=== PATIENT | female | born 1940 | race African-American/Black ===

== ENCOUNTER 2019-01-17 09:57 | Emergency (ER) | payer OTHER ==
--- OUTSIDE RECORDS SUMMARY | 2019-01-17 10:00 | XMS REPORT ---
:1940 Author Organization [employer] Care Team Providers Name Role Phone Smith, Luh Provider Role Unavailable Allergies No Known Allergies Problems Problem Type Condition Code Onset Dates Condition Status Problem Allergic rhinitis J30.9 Active Problem BMI 38.0-38.9,adult Z68.38 Active Problem Hyperlipidemia E78.5 Active Problem BMI 40.0-44.9, adult Z68.41 Active Problem Influenza vaccination administered Z23 Active at current visit Problem Primary insomnia F51.01 Active Problem HTN (hypertension) I10 Active Problem Hypertensive urgency I16.0 Active Problem Asymptomatic hypertensive urgency I16.0 Active Problem Acute right-sided low back pain with M54.41 Active right-sided sciatica Problem Age-related cataract of both eyes, H25.9 Active unspecified age-related cataract type Problem Elevated blood pressure reading with I10 Active diagnosis of hypertension Problem Spondylolisthesis at L5-S1 level M43.17 Active Problem White coat syndrome with diagnosis I10 Active of hypertension Medications Medication Code Code Instructions Start End Status Dosage System Date Date Verapamil HCl NDC 88118793542 240 MG Orally Dec 26, Active 1 tablet ER Once a day 2018 Verapamil HCl NDC 91000429022 240 MG Orally Dec 18, Inactive 1 capsule ER Once a day 2018 Results No Known Results Summary Purpose [employer] Submission
--- NOTE | 2019-01-17 11:28 | RAD REPORT ---
EXAM DESCRIPTION: RAD - Chest Pa And Lat (2 Views) - 01/17/2019 11:11 am CLINICAL HISTORY: COUGH Chest pain. COMPARISON: No comparisons FINDINGS: The lungs are clear. The heart is mildly enlarged in size. No displaced fractures. Thoraci c spondylosis.
--- NOTE | 2019-01-17 11:44 | ER ---
Nurse's Notes [facility] Name: Julisa Rutledge Age: 78 yrs Sex: Female : 1940 Arrival Date: 01/17/2019 Time: 10:00 Bed 5 Private MD: Unknown, Unknown Diagnosis: Acute sinusitis, unspecified Presentation: 01/17 10:03 Presenting complaint: Patient states: i have congestion and my sinuses are bothering, tw2 and under my LEFT breast is hurting after wearing one of those 18 hr bras and i dont know if i messed up a rib. Transition of care: patient was not received from another setting of care. Onset of symptoms was January 17, 2019. Risk Assessment: Do you want to hurt yourself or someone else? Patient reports no desire to harm self or others. Initial Sepsis Screen: Does the patient meet any 2 criteria? No. Patient's initial sepsis screen is negative. Does the patient have a suspected source of infection? No. Patient's initial sepsis screen is negative. Care prior to arrival: None. 10:03 Method Of Arrival: Ambulatory tw2 10:03 Acuity: CHRISTINE 3 tw2 Triage Assessment: 10:05 General: Appears in no apparent distress. Behavior is calm, cooperative, appropriate tw2 for age. Pain: Complains of pain in diaphragm. Respiratory: Reports cough that is. Respiratory: Reports cough that is productive. Musculoskeletal: Range of motion: intact in all extremities. Historical: - Allergies: 10:08 No Known Drug Allergies; tw2 - Home Meds: 10:08 verapamil 240 mg Oral C24P 1 cap once daily [Active]; atorvastatin 10 mg oral tab 1 tab tw2 once daily [Active]; quinapril 20 mg Oral tab 1 tab once daily [Active]; - PMHx: 10:08 seasonal allergies; Hypertension; High Cholesterol; tw2 - PSHx: 10:08 ; finger amputation; tw2 - Immunization history:: Adult Immunizations. - Social history:: Smoking status: . - Ebola Screening: : Patient denies travel to an Ebola-affected area in the 21 days before illness onset. - Family history:: not pertinent. - Hospitalizations: : No recent hospitalization is reported. Screenin:30 Abuse screen: Denies threats or abuse. Nutritional screening: No deficits noted. aa5 Tuberculosis screening: No symptoms or risk factors identified. Fall Risk None identified. Assessment: 10:30 General: Appears comfortable, Behavior is calm, cooperative. Pain: Complains of pain in aa5 diaphragm Pain does not radiate. Pain currently is 10 out of 10 on a pain scale. Quality of pain is described as sharp, Is intermittent. Neuro: Level of Consciousness is awake, alert, obeys commands, Oriented to person, place, time, situation. Cardiovascular: Heart tones S1 S2 present Rhythm is regular. Respiratory: Reports cough that is non-productive, Airway is patent Respiratory effort is even, unlabored, Respiratory pattern is regular, symmetrical, Breath sounds are clear bilaterally. GI: Abdomen is round non-distended, Bowel sounds present X 4 quads. Abd is soft and non tender X 4 quads. : No signs and/or symptoms were reported regarding the genitourinary system. EENT: Parent/caregiver reports the patient having nasal congestion nasal discharge that is watery. Derm: Skin is dry, Skin is normal, Skin temperature is warm. Musculoskeletal: Range of motion: intact in all extremities. 11:15 Reassessment: Pt back from X-ray, pt notified of wait time for results. Pt sitting up aa5 in bed watching TV. . Vital Signs: 10:06 BP 112 / 60; Pulse 92; Resp 17; Temp 98.2(O); Pulse Ox 98% on R/A; Weight 95.25 kg (R); tw2 Height 5 ft. 3 in. (160.02 cm); Pain 10/10; 10:06 Body Mass Index 37.20 (95.25 kg, 160.02 cm) tw2 ED Course: 10:00 Patient arrived in ED. ag5 10:01 Unknown, Unknown is Private Physician. ag5 10:05 Triage completed. tw2 10:05 Arm band placed on. tw2 10:14 Huang Carvalho MD is Attending Physician. rn 10:18 Jana Elaine RN is Primary Nurse. aa5 10:30 Patient has correct armband on for positive identification. Bed in low position. Call [facility] light in reach. Side rails up X 1. 10:35 Flu and/or RSV swab sent to lab. Strep swab sent to lab. aa5 11:12 XRAY Chest Pa And Lat (2 Views) In Process Unspecified. EDMS 12:10 No provider procedures requiring assistance completed. Patient did not have IV access iw during this emergency room visit. Administered Medications: No medications were administered Outcome: 11:43 Discharge ordered by . rn 12:10 Discharged to home via wheelchair. iw 12:10 Condition: good 12:10 Discharge instructions given to patient, Instructed on discharge instructions, follow up and referral plans. medication usage, Demonstrated understanding of instructions, follow-up care, medications, Prescriptions given X 1. 12:10 Patient left the ED. iw Signatures: Dispatcher [employer] EDMS Zulma Caraballo, RN RN iw Huang Carvalho MD MD rn Calderon, Audri, RN RN aa5 Viktoriya Ashton RN RN tw2 Harris Sosa 5
--- NOTE | 2019-01-17 11:45 | EDPHYS ---
Physician Documentation [facility] Name: Julisa Rutledge Age: 78 yrs Sex: Female : 1940 Arrival Date: 01/17/2019 Time: 10:00 Bed 5 Private MD: Unknown, Unknown ED Physician Huang Carvalho HPI: 01/17 10:33 This 78 yrs old Black Female presents to ER via Ambulatory with complaints of Sinus rn Congestion, Back Pain. 10:33 This 78 yrs old Black Female presents to ER via Ambulatory with complaints of Sinus rn Congestion. 10:33 The patient or guardian reports cough, that is intermittent, described as mild, with rn productive sputum. 10:33 Onset: The symptoms/episode began/occurred yesterday. Severity of symptoms: At their rn worst the symptoms were mild, in the emergency department the symptoms have improved. Modifying factors: The symptoms are alleviated by nothing, the symptoms are aggravated by nothing. Associated signs and symptoms: Pertinent positives: rhinorrhea, Pertinent negatives: chest pain, fever. The patient has not experienced similar symptoms in the past. The patient has not recently seen a physician. Reports cough, congestion, sinus pressure and drainage, began yesterday, reports was having bilateral rib pain but attributes it to bra pain, when took it off pain went away. No trauma. No hemoptysis. no chest pain or sob. No abd pain. . Historical: - Allergies: 10:08 No Known Drug Allergies; tw2 - Home Meds: 10:08 verapamil 240 mg Oral C24P 1 cap once daily [Active]; atorvastatin 10 mg oral tab 1 tab tw2 once daily [Active]; quinapril 20 mg Oral tab 1 tab once daily [Active]; - PMHx: 10:08 seasonal allergies; Hypertension; High Cholesterol; tw2 - PSHx: 10:08 ; finger amputation; tw2 - Immunization history:: Adult Immunizations. - Social history:: Smoking status: . - Ebola Screening: : Patient denies travel to an Ebola-affected area in the 21 days before illness onset. - Family history:: not pertinent. - Hospitalizations: : No recent hospitalization is reported. ROS: 10:33 Constitutional: Negative for fever, chills, and weight loss, Eyes: Negative for injury, rn pain, redness, and discharge, ENT: + nasal congestion, and sinus pressure Cardiovascular: Negative for chest pain, palpitations, and edema, Respiratory: Negative for shortness of breath, wheezing, and pleuritic chest pain, Abdomen/GI: Negative for abdominal pain, nausea, vomiting, diarrhea, and constipation, MS/Extremity: Negative for injury and deformity, Skin: Negative for injury, rash, and discoloration, Neuro: Negative for headache, weakness, numbness, tingling, and seizure. Exam: 10:33 Constitutional: This is a well developed, well nourished patient who is awake, alert, rn and in no acute distress. Head/Face: Normocephalic, atraumatic. Eyes: Pupils equal round and reactive to light, extra-ocular motions intact. Lids and lashes normal. Conjunctiva and sclera are non-icteric and not injected. Cornea within normal limits. Periorbital areas with no swelling, redness, or edema. ENT: MMM, no stridor Neck: Trachea midline, no thyromegaly or masses palpated, and no cervical lymphadenopathy. Supple, full range of motion without nuchal rigidity, or vertebral point tenderness. No Meningismus. Cardiovascular: Regular rate and rhythm with a normal S1 and S2. No gallops, murmurs, or rubs. Normal PMI, no JVD. No pulse deficits. Respiratory: Lungs have equal breath sounds bilaterally, clear to auscultation and percussion. No rales, rhonchi or wheezes noted. No increased work of breathing, no retractions or nasal flaring. Abdomen/GI: soft, non-tender MS/ Extremity: Pulses equal, no cyanosis. Neurovascular intact. Full, normal range of motion. Equal circumference. Neuro: Awake and alert, GCS 15, oriented to person, place, time, and situation. Cranial nerves II-XII grossly intact. Motor strength 5/5 in all extremities. Sensory grossly intact. Vital Signs: 10:06 BP 112 / 60; Pulse 92; Resp 17; Temp 98.2(O); Pulse Ox 98% on R/A; Weight 95.25 kg (R); tw2 Height 5 ft. 3 in. (160.02 cm); Pain 10/10; 10:06 Body Mass Index 37.20 (95.25 kg, 160.02 cm) tw2 MDM: 10:14 Patient medically screened. rn 11:42 Differential Diagnosis: Bronchitis Influenza Upper Respiratory Infection Sinusitis rn Viral Syndrome Pneumonia. Data reviewed: vital signs, nurses notes, lab test result(s), radiologic studies, plain films, and as a result, I will discharge patient. Test interpretation: by ED physician or midlevel provider: plain radiologic studies, CXR neg for acute infiltrate. Counseling: I had a detailed discussion with the patient and/or guardian regarding: the historical points, exam findings, and any diagnostic results supporting the discharge/admit diagnosis, lab results, radiology results, the need for outpatient follow up, smoking cessation. Special discussion: I discussed with the patient/guardian in detail that at this point there is no indication for admission to the hospital. It is understood, however, that if the symptoms persist or worsen the patient needs to return immediately for re-evaluation. Based on the history and exam findings, there is no indication for further emergent testing or inpatient evaluation. I discussed with the patient/guardian the need to see the primary care provider for further evaluation of the symptoms. 01/17 10:19 Order name: Flu; Complete Time: 11: rn 01/17 10:19 Order name: Strep; Complete Time: 11: rn 12 10:19 Order name: XRAY Chest Pa And Lat (2 Views); Complete Time: 11:42 rn 01/17 11:22 Order name: Throat Culture EDMS Administered Medications: No medications were administered Disposition: 01/17/19 11:43 Discharged to Home. Impression: Acute sinusitis, unspecified. - Condition is Stable. - Discharge Instructions: Sinusitis, Adult. - Prescriptions for Zithromax Z- Jesus 250 mg Oral Tablet - take 1 tablet by ORAL route as directed for 5 days Day 1 - take two (2) tablets one time. Day 2, 3, 4 , 5 take one (1) tablet once daily.; 6 tablet. - Medication Reconciliation Form, Thank You Letter, Antibiotic Education, Prescription Opioid Use form. - Follow up: Private Physician; When: As needed; Reason: Recheck today's complaints, Re-evaluation by your physician. - Problem is new. - Symptoms have improved. Signatures: Dispatcher [employer] EDMS Zulma Caraballo RN RN Huang Carvalho MD MD rn Wise, Tara, RN RN tw2 Corrections: (The following items were deleted from the chart) 12:10 11:43 01/17/2019 11:43 Discharged to Home. Impression: Acute sinusitis, unspecified. iw Condition is Stable. Forms are Medication Reconciliation Form, Thank You Letter, Antibiotic Education, Prescription Opioid Use. Follow up: Private Physician; When: As needed; Reason: Recheck today's complaints, Re-evaluation by your physician. Problem is new. Symptoms have improved. rn
[2019-01-17 12:30] VITALS: BP 112/60; TEMP 98.2; O2SAT 98
== END 2019-01-17 12:10 | disposition home or self-care (01) ==
LOC: ER 09:57
DX: J01.90 Acute sinusitis, unspecified (principal); I10 Essential (primary) hypertension; E78.00 Pure hypercholesterolemia, unspecified; J30.2 Other seasonal allergic rhinitis
CPT/HCPCS: 71046; 87070; 87081; 87804; 99283